=== PATIENT | female | born 1955 | race African-American/Black ===

== ENCOUNTER 2016-05-15 16:50 | Emergency (ER) | payer MEDICAID ==
[~2016-05-15] VITALS: Ht 162.6 cm; Wt 135.2 kg
[~2016-05-15 16:50] MED LIST: ALBUTEROL SULF8.5 GM INH; ASPIRIN81 MG PO; ATARAX25 MG ORAL; AZITHROMYCIN250 MG ORAL; CEPHALEXIN500 MG ORAL; CLINDAMYCIN HC150 MG ORAL; FERROUS SULFAT325 MG ORAL; KLOR-CON 1010 MEQ PO; LASIX20 M1 PO; LISINOPRIL-HCT1 EAC2 ORAL; LISINOPRIL-HCT1 EAC2 PO; LYRICA50 MG PO; MONTELUKAST SOD10 MG ORAL; MULTI VITAMIN1 EACH ORAL; NAPROSYN500 M1 ORAL; NAPROXEN375 MG ORAL; NAPROXEN500 M2 ORAL; PENICILLIN V P500 MG PO; POTASSIUM CHLO10 MEQ ORAL; POTASSIUM CHLO20 ME1 ORAL; PREDNISONE20 MG ORAL; QUETIAPINE FUMA25 MG ORAL; QVAR 80MCG ORA1 PUFF INH; QVAR7.3 GM IH; QVAR7.3 GM INH; ROBAXIN-750750 MG PO; SEROQUEL300 MG ORAL; SEROQUEL300 MG PO; TAMIFLU75 MG ORAL; TRAZODONE HCL100 MG ORAL; TRAZODONE HCL100 MG PO; TRAZODONE HCL150 MG ORAL; VENTOLIN HFA18 GM INH
[2016-05-15 17:11] VITALS: BP 129/69
[2016-05-15] MEDS ORDERED: PROMETHAZINE-D118 ML ORAL (17:23)
[2016-05-15] MEDS ORDERED: QUETIAPINE FUMA25 MG ORAL (17:23)
[2016-05-15] MEDS ORDERED: AMOXICILLIN500 MG ORAL (17:23)
[2016-05-15] MEDS ORDERED: QUETIAPINE FUM300 MG ORAL (17:23)
[2016-05-15] MEDS ORDERED: TRAZODONE HCL100 MG ORAL (17:23)
[2016-05-15 17:35] VITALS: BP 129/69
--- NOTE | 2016-05-15 21:33 | Emergency Room Report ---
History of Present Illness General Chief Complaint: Upper Respiratory Illness Present Illness HPI The patient is a 61-year-old female presenting with a productive cough and subjective fevers for the past 3 days. Patient denies any recent travel or sick contacts. Patient is producing a green to yellow sputum. The patient denies other symptoms including headache, neck pain or stiffness, chills, rash, difficulty breathing, chest pain, night sweats, hemoptysis Allergies: Coded Allergies: IODINE (Verified Allergy, Severe, rash, 10/29/12) Patient History Past Medical History: see triage record Pertinent Family History: none Last Menstrual Period: Hysterectomy 1999 Now: No Reviewed Nursing Documentation: PMH: Agreed, PSxH: Agreed Nursing Documentation-PMH Hx Cardiac Problems: Yes Hx Hypertension: Yes Hx Pacemaker: No Hx Asthma: Yes Hx Diabetes: No Hx Cancer: No Hx Gastrointestinal Problems: No Hx Dialysis: No Hx Neurological Problems: No Hx Cerebrovascular Accident: No Hx Seizures: No Review of Systems All Other Systems: negative except mentioned in HPI Physical Exam Vital Signs Date Time Temp Pulse Resp B/P Pulse Ox O2 Delivery O2 Flow Rate FiO2 05/15/16 17:02 98.4 108 16 129/69 97 Room Air Sp02 EP Interpretation: reviewed, normal General Appearance: no apparent distress, alert, GCS 15, non-toxic Head: normocephalic, atraumatic Eyes: bilateral eye PERRL, bilateral eye normal inspection ENT: no angioedema, normal voice, tonsillar swelling, pharyngeal erythema, tonsillar exudate Neck: full range of motion, supple/symm/no masses Respiratory: chest non-tender, lungs clear, normal breath sounds, no wheezing, speaking full sentences Genitourinary: normal inspection, no CVA tenderness Musculoskeletal: back normal, gait/station normal, normal range of motion, non- tender Neurologic: alert, oriented x3, responsive, motor strength/tone normal, sensory intact, speech normal Psychiatric: judgement/insight normal, memory normal, mood/affect normal, no suicidal/homicidal ideation Skin: normal color, no rash, warm/dry, well hydrated Lymphatic: adenopathy Medical Decision Making PA Attestation Dr. Loyola is my supervising physician. Patient management was discussed with my supervising physician Diagnostic Impression: Primary Impression: Pharyngitis, acute ER Course The patient is a 61-year-old female presenting with a productive cough and subjective fevers for the past 3 days Differential diagnosis include but not limited to pharyngitis, sinusitis, AOM, bronchitis, PNA Physical exam: Vitals within normal limits. Afebrile. No apparent distress HEENT exam: There is bilateral tonsillar edema, erythema, and exudate. Uvula midline. Moist mucous membranes. There is bilateral cervical lymphadenopathy. Lungs are clear to auscultation bilaterally Skin is warm and dry. No rash The patient will be discharged home with a prescription for amoxicillin And cough medication and is given ER precautions. Patient will followup with primary care. The patient is also given a refill of seizure medications and the patient will follow up with PMD as soon as possible. Last Vital Signs Date Time Temp Pulse Resp B/P Pulse Ox O2 Delivery O2 Flow Rate FiO2 05/15/16 17:35 98.4 16 129/69 97 Room Air 05/15/16 17:11 108 Status: improved Disposition: HOME, SELF-CARE Condition: Improved Scripts Quetiapine Fumarate (QUETIAPINE FUMARATE) 300 Mg Tablet 300 MG ORAL BEDTIME, #30 TAB Prov: TERZIAN,NICOLE P.A. 05/15/16 Trazodone Hcl* (DESYREL*) 100 Mg Tablet 100 MG ORAL BEDTIME, #30 TAB Prov: TERZIAN,NICOLE P.A. 05/15/16 Quetiapine Fumarate* (SEROQUEL*) 25 Mg Tablet 25 MG ORAL DAILY, #30 TAB Prov: TERZIAN,NCIOLE P.A. 05/15/16 D-Methorphan Hb/Prometh Hcl* (PROMETHAZINE-DM SYRUP*) 118 Ml Syrup 5 ML ORAL Q6H Y for For Cough, #118 ML 0 Refills Prov: TERZIAN,NICOLE P.A. 05/15/16 Amoxicillin* (AMOXIL*) 500 Mg Capsule 500 MG ORAL Q12HR, #20 CAP Prov: TERZIAN,NICOLE P.A. 05/15/16 Referrals: OTHER,REFERRING Patient Instructions: Medicine Refill at the Emergency Department, Upper Respiratory Infection, Adult Additional Instructions: I discussed my findings with the patient. All questions and concerns have been answered. Treatment and medication compliance have been addressed. I advised the patient that they need to follow up with PMD in 3-5 days. Return to ED if pain remains or worsens, cough worsens or remains, you notice blood in your sputum, you notice wheezing, you experience a fever, or if needed for any reason. Patient verbalized understanding of discharge instructions. NICOLE TO May 15, 2016 21:33
== END 2016-05-15 17:45 | disposition home or self-care (01) ==
LOC: EMR 17:21
DX: J02.9 Acute pharyngitis, unspecified (principal); Z91.048 Other nonmedicinal substance allergy status; I10 Essential (primary) hypertension; J45.909 Unspecified asthma, uncomplicated
CPT/HCPCS: 99284

== ENCOUNTER 2016-09-06 11:57 | Emergency (ER) | payer MEDICAID ==
[~2016-09-06] VITALS: Ht 162.6 cm; Wt 131.5 kg
[~2016-09-06 11:57] MED LIST changes: +AMOXICILLIN500 MG ORAL; +PROMETHAZINE-D118 ML ORAL; +QUETIAPINE FUM300 MG ORAL
[2016-09-06 12:30] VITALS: BP 106/68
--- NOTE | 2016-09-06 12:55 | Emergency Room Report ---
History of Present Illness General Chief Complaint: Medication Refill Source: Patient Present Illness HPI 61 YO female presents to the ED c/o running out of her medication and that she normally takes 300mg Seroquel, and 100mg trazodone for insomnia nightly in addition to 100mg Seroquel in the am. pt. states hx of insomnia, depression, and anxiety. denies hx of seizures. denies SI/HI, delusions, jennie, or illicit drug use. Denies N/V/F/C. Pt denies pmhx , denies hx of sleep studies. Denies CP, Palpitations, LOC, AMS, dizziness, Changes in Vision, Sensation, paresthesias, or a sudden severe headache. Allergies: Coded Allergies: IODINE (Verified Allergy, Severe, rash, 10/29/12) Patient History Past Medical History: see triage record Past Surgical History: none Pertinent Family History: none Last Menstrual Period: hyst Reviewed Nursing Documentation: PMH: Agreed, PSxH: Agreed Nursing Documentation-PMH Hx Cardiac Problems: Yes Hx Hypertension: Yes Hx Pacemaker: No Hx Asthma: Yes Hx Diabetes: Yes - "Borderline" Hx Cancer: No Hx Gastrointestinal Problems: No Hx Dialysis: No History Of Psychiatric Problem: Yes - Depression; anxiety Hx Neurological Problems: No Hx Cerebrovascular Accident: No Hx Seizures: No Review of Systems All Other Systems: negative except mentioned in HPI Physical Exam Vital Signs Date Time Temp Pulse Resp B/P Pulse Ox O2 Delivery O2 Flow Rate FiO2 09/06/16 12:23 98.4 90 16 106/68 96 Room Air Sp02 EP Interpretation: reviewed, normal General Appearance: no apparent distress, alert, GCS 15, non-toxic, obese Head: normocephalic, atraumatic Eyes: bilateral eye PERRL, bilateral eye normal inspection ENT: hearing grossly normal, normal pharynx, no angioedema, normal voice Neck: full range of motion, supple/symm/no masses Respiratory: lungs clear, normal breath sounds, speaking full sentences Cardiovascular #1: regular rate, rhythm, no edema Musculoskeletal: back normal, gait/station normal, normal range of motion, non- tender Neurologic: alert, oriented x3, responsive, motor strength/tone normal, sensory intact, speech normal Psychiatric: judgement/insight normal, memory normal, mood/affect normal, no suicidal/homicidal ideation Skin: normal color, no rash, warm/dry, well hydrated Medical Decision Making PA Attestation Dr. mendiola is my supervising Physician whom patient management has been discussed with. Diagnostic Impression: Primary Impression: Encounter for medication refill Additional Impressions: History of insomnia History of anxiety History of depression ER Course Pt. presents to the ED c/o running out of her medication and that she normally takes 300mg Seroquel, and 100mg trazodone for insomnia nightly in addition to 100mg Seroquel in the am. pt. states hx of insomnia, depression, and anxiety. denies hx of seizures. Ddx considered but are not limited to: drug seeking, OD, insomnia, pt. was given [facility] information at last visit. - d/w pt. that I am uncomfortable rx'ing the maximum dosage for Seroquel in addition to a larger than recommended dosage of trazodone nightly for sleep. Considering that Pt. did not follow up with previously provided discharge instructions and [facility] resource information. D/w pt. that I will give her a limited quantity and that she needs to have her medication management done by either a primary care doctor or a psychiatric provider from [facility]. d/w pt. the dangers of visiting multiple ED's and being prescribed medications by different providers who are not familiar with her history. also d/w pt. that her insomnia may be due to sleep apnea secondary to obesity, and that this is also a concern as to why I do not feel comfortable writting for her requested dosages. Vital signs: are WNL, pt. is afebrile H&PE are most consistent with need for medication refill. ORDERS: none required at this time, the diagnosis is clinical ED INTERVENTIONS: None required at this time. -Pt was again given [facility] mental [facility] Urgent care resource information, in addition to list of local reduced cost health clinics. DISCHARGE: At this time pt. is stable for d/c to home. Will provide printed patient care instructions, and any necessary prescriptions. Care plan and follow up instructions have been discussed with the patient prior to discharge. Last Vital Signs Date Time Temp Pulse Resp B/P Pulse Ox O2 Delivery O2 Flow Rate FiO2 09/06/16 12:30 98.4 90 16 106/68 96 Room Air Disposition: HOME, SELF-CARE Condition: Stable Scripts Trazodone Hcl* (DESYREL*) 50 Mg Tablet 50 MG ORAL BEDTIME for 30 Days, #30 TAB Prov: Orly Burnham 09/06/16 Quetiapine Fumarate (SEROQUEL) 300 Mg Tablet 300 MG ORAL QHS for 30 Days, #30 TAB Prov: Orly Burnham. 09/06/16 Quetiapine Fumarate* (SEROQUEL*) 100 Mg Tablet 100 MG ORAL ACBREAKFAST for 30 Days, #30 TAB Prov: Orly Burnham 09/06/16 Patient Instructions: Medicine Refill at the Emergency Department Additional Instructions: Take medications as directed. Follow up with a Psychiatric Provider in 3-5 days, even if your symptoms have resolved. --Please review [facility] information, if you do not already have a psychiatric provider Return sooner to ED if new symptoms occur, or current symptoms become worse. Do not drink alcohol, drive, or operate heavy machinery while taking Seroquel or Trazodone as this may cause drowsiness. - Please note that this Emergency Department Report was dictated using [employer] education paraprofessional technology software, occasionally this can lead to erroneous entry secondary to interpretation by the dictation equipment. Orly Burnham Sep 06, 2016 12:55
[2016-09-06] MEDS ORDERED: SEROQUEL300 MG ORAL (12:59)
[2016-09-06] MEDS ORDERED: TRAZODONE HCL50 MG ORAL (12:59)
[2016-09-06] MEDS ORDERED: SEROQUEL100 MG ORAL (12:59)
[2016-09-06 13:14] VITALS: BP 106/68
== END 2016-09-06 13:16 | disposition home or self-care (01) ==
LOC: EMR 13:05
DX: G47.00 Insomnia, unspecified (principal); Z76.0 Encounter for issue of repeat prescription; F32.9 Major depressive disorder, single episode, unspecified; F41.9 Anxiety disorder, unspecified; I10 Essential (primary) hypertension; J45.909 Unspecified asthma, uncomplicated; R73.03 Prediabetes
CPT/HCPCS: 99284

== ENCOUNTER 2017-11-06 18:26 | Emergency (ER) | payer MEDICAID ==
[~2017-11-06] VITALS: Ht 160 cm; Wt 127.0 kg
[~2017-11-06 18:26] MED LIST changes: +SEROQUEL100 MG ORAL; +TRAZODONE HCL50 MG ORAL
[2017-11-06 19:06] VITALS: BP 108/45
--- NOTE | 2017-11-06 19:11 | Diagnostic Imaging Report ---
EXAM: XR Chest, 1 View CLINICAL HISTORY: SYNCOPE TECHNIQUE: Frontal view of the chest. COMPARISON: 04/11/2013 FINDINGS: Lungs: Left basilar opacity is concerning for an infectious or inflammatory process. Pleural space: Unremarkable. No pneumothorax. Heart: Unremarkable. No cardiomegaly. Mediastinum: Unremarkable. Bones/joints: No acute osseous abnormality. IMPRESSION: Left basilar opacity is concerning for an infectious or inflammatory process.
[2017-11-06 19:22] LABS: ANION GAP 10 mmol/L (5-15); BLOOD UREA NITROGEN 26 mg/dL (7-18); CALCIUM 9.8 MG/DL (8.5-10.1); CARBON DIOXIDE 26 MMOL/L (21-32); CHLORIDE 103 MMOL/L (98-107); CREATININE 1.3 MG/DL (0.55-1.30); POTASSIUM 3.5 MMOL/L (3.5-5.1); SODIUM 139 MMOL/L (136-145)
[2017-11-06 19:33] LABS: ALANINE AMINOTRANSFERASE 19 U/L (12-78); ALBUMIN 3.2 G/DL (3.4-5.0); ALBUMIN/GLOBULIN RATIO 0.8 (1.0-2.7); ALKALINE PHOSPHATASE 93 U/L (46-116); ASPARTATE AMINO TRANSFERASE 12 U/L (15-37); BILIRUBIN,TOTAL 0.2 MG/DL (0.2-1.0)
--- NOTE | 2017-11-06 19:33 | Emergency Room Report ---
History of Present Illness General Chief Complaint: Syncope Source: Patient, EMS Present Illness HPI Ms. Mckeon is a 8-year-old female with history of hypertension, pulmonary embolism and asthma who presents with chest and abdominal pain syncope today. She remembers eating a mixed fruit cup purchased from a street cleaning equipment operator. She then recalled having stomach upset radiating to chest. Minor shart central pain. +vomiting [place] was [place] the bus stop when this occurred. She will realized that she likely passed out because she missed the bus. EMS discovered her on the ground covered with vomit. She denies any pain at this time. However she does have recurrent abdominal pain requiring "GI cocktail". She is currently taking Eliquis for pulmonary embolism. She was diagnosed with PE 10 months ago. Allergies: Coded Allergies: IODINE (Verified Allergy, Severe, rash, 10/29/12) Patient History Past Medical History: see triage record Social History: Denies: smoking, alcohol use, drug use Social History Narrative retired life insurance agent, lives with son Nursing Documentation-PMH Past Medical History: No History, Except For Hx Cardiac Problems: Yes Hx Hypertension: Yes Hx Pacemaker: No Hx Asthma: Yes Hx Diabetes: Yes - PRe diabetes Hx Cancer: No Hx Gastrointestinal Problems: No Hx Dialysis: No Hx Neurological Problems: No Hx Cerebrovascular Accident: No Hx Seizures: No Review of Systems Constitutional: Denies: fever, malaise Cardiovascular: Reports: chest pain Gastrointestinal: Reports: abdominal pain, nausea, vomiting Musculoskeletal: Denies: back pain All Other Systems: negative except mentioned in HPI Physical Exam Vital Signs Date Time Temp Pulse Resp B/P (MAP) Pulse Ox O2 Delivery O2 Flow Rate FiO2 11/06/17 18:21 98.4 108 16 136/100 99 Room Air 98.4 Sp02 EP Interpretation: reviewed, normal General Appearance: no apparent distress, alert, GCS 15, non-toxic Head: normocephalic, atraumatic Eyes: bilateral eye normal inspection ENT: hearing grossly normal, normal pharynx, no angioedema, normal voice Neck: full range of motion, supple/symm/no masses Respiratory: chest non-tender, lungs clear, normal breath sounds, speaking full sentences Cardiovascular #1: no JVD, no murmur, no rub, tachycardia Gastrointestinal: normal bowel sounds, non tender, soft, non-distended, no guarding, no rebound Musculoskeletal: back normal, gait/station normal, normal range of motion, non- tender Neurologic: alert, oriented x3, responsive, motor strength/tone normal, sensory intact, speech normal Psychiatric: judgement/insight normal, memory normal, mood/affect normal, no suicidal/homicidal ideation Skin: normal color, no rash, warm/dry, well hydrated Lymphatic: no adenopathy Medical Decision Making Diagnostic Impression: Primary Impression: Syncope Additional Impression: CAP (community acquired pneumonia) ER Course Ms. Mckeon is very pleasant 62 yo female who developed nausea vomiting after eating food from street cleaning equipment operator. She has subsequent syncope. Has stomach upset , requests GI cocktail. Has elevated WBC without abdominal tenderness. Has elevated d-dimer but declined CTA with hx of iodine allergy. She does not have persistent chest pain dyspnea or tachycardia to indicated acute PE. PUlse ox 100% RA. She has been compliant with eliquis therapy. Tachycardia improved with IV fluid therapy. BP also improved. Possible infiltrate vs atelectasis left lower lobe. Patient stated that she was treated for pneumonia 8 months ago. Will cover for pneumonia. Dr. Manriquez accepted the patient in transfer to [facility] EKG Diagnostic Results Rate: tachycardiac Rhythm: NSR ST Segments: no acute changes Other Impression sinus tachycardia rate 100 bpm +PVCs, normal intervals, normal axis no ST elevation Last Vital Signs Date Time Temp Pulse Resp B/P (MAP) Pulse Ox O2 Delivery O2 Flow Rate FiO2 11/06/17 19:06 106 21 108/45 95 Room Air 11/06/17 18:21 98.4 98.4 Lila Juárez MD Nov 06, 2017 19:33
[2017-11-06 19:35] LABS: BASOPHILS % (AUTO) 1.7 % (0.0-2.0); EOSINOPHILS % (AUTO) 4.5 % (0.0-3.0); HEMATOCRIT 32.7 % (37.0-47.0); HEMOGLOBIN 11.1 G/DL (12.0-16.0); LYMPHOCYTES % (AUTO) 30.8 % (20.0-45.0); MEAN CORPUSCULAR VOLUME 82 FL (80-99); MONOCYTES % (AUTO) 5.7 % (1.0-10.0); NEUTROPHILS % (AUTO) 57.4 % (45.0-75.0); PLATELET COUNT 258 K/UL (150-450); RED BLOOD COUNT 3.98 M/UL (4.20-5.40); RED CELL DISTRIBUTION WIDTH 12.9 % (11.6-14.8); WHITE BLOOD COUNT 12.4 K/UL (4.8-10.8)
[2017-11-06 20:33] VITALS: BP 128/61
[2017-11-06] MEDS ORDERED: cefTRIAXone 1 GM in NS 55 ML IV SCH (21:45)
[2017-11-06] MEDS ORDERED: Azithromycin 500 MG in NS 275 ML IV SCH (21:45)
[2017-11-06 22:30] VITALS: BP 111/52
[2017-11-06] MEDS ORDERED: Mylanta II UD 30ml ONE (22:42)
[2017-11-06] MEDS ORDERED: Lidocaine 2% Visc 15ml soln ONE (22:42)
[2017-11-06] MEDS ORDERED: Dicyclomine HCl 10mg/5ml oral soln ONE (22:43)
[2017-11-06] MEDS ORDERED: GI Cocktail 50ml ORAL ONE (22:45)
[2017-11-07] VITALS: BP 101/98
--- NOTE | 2017-11-09 14:50 | Cardiology Report ---
APPROVED REPORT EKG Measurement Heart [id number] Sinus tachycardia with occasional premature ventricular complexes Possible Left atrial enlargement Low voltage QRS Borderline ECG
== END 2017-11-07 | disposition short-term general hospital (02) ==
LOC: EDBD 18:26 → EMR 18:45
DX: R55 Syncope and collapse (principal); J18.9 Pneumonia, unspecified organism; I10 Essential (primary) hypertension; J45.909 Unspecified asthma, uncomplicated; R73.03 Prediabetes; Z86.79 Personal history of other diseases of the circulatory system
CPT/HCPCS: 36415; 71045; 80053; 83880; 84484; 85025; 85379; 93005; 96361; 96365; 96367; 99285; J0456; J0696; J7050